=== PATIENT | male | born 1935 | race Caucasian/White ===

== ENCOUNTER → 2017-01-07 | Outpatient (CLI) | payer OTHER ==
--- NOTE | ~2017-01-07 | EXE ---
[facility] [employer] [place] [address] STRESS ECHOCARDIOGRAM Name: TERESA LOZOYA CHIKA Room #: REG MICHELLE ViDanielTian#: [id number] Admission: 01/07/17 Attend Phys: Sunny Dial, Discharge: Date of : 35 Date of Service: 01/07/17 1749 Report #: [id number] THIS REPORT FOR: //name// APPROVED REPORT Exam: Stress Echocardiogram Indication: HISTORY OF CABG Patient Location: Out-Patient Stress Nurse: Hanh Sweeney RN Status: routine HR: 84 bpm Medical History Medical History: CABG, MV repair, HTN, HLP Allergies: No known drug allergies Procedure The patient underwent an Exercise Stress Test using a Modified Gary Protocol. Blood pressure, heart rate, and EKG were monitored. An Echocardiogram was performed by upholstery technician in four stages in quad fashion. At peak stress, four selected images were obtained and placed side by side with resting images for comparison. Stress Test Details Stress Test: Exercise stress testing was performed using a modified Gary protocol. HR Resting HR: 84 bpm Max Heart Rate (APMHR): 139 bpm Max HR Achieved: 131 bpm Target HR (85% APMHR): 118 bpm % of APMHR: 94 Recovery HR: 92 bpm BP Resting BP: 132/69 mmHg Max BP: 170/68 mmHg Recovery BP: 140/60 mmHg ECG Arrhythmia: Ectopy noted post exercise Clinical Reason for Termination: moderate fatigue. Exercise duration: 4 min 42 sec Exercise capacity: 5.80 METs [facility] [address] [place] [address] STRESS ECHOCARDIOGRAM Name: TERESA LOZOYA CHIKA Room #: REG FabiánTian#: [id number] Admission: 01/07/17 Attend Phys: Sunny Dial, Discharge: Date of : 35 Date of Service: 01/07/171748 Report #: [id number] Unable to reach 100% of predicted heart for exam. All meds had been taken this morning. Patient became too fatigued to continue with treadmill. Had to "hold" stage 2 at a slower pace. Pre-Stress Echo The resting Echocardiogram showed normal left ventricular contractility with an estimated Ejection Fraction of about 55-60%. Mitral valve repair with trace to mild regurgitation. Moderate TR. PAP of 36mmHg plus the right atrial pressure. Post-Stress Echo The stress Echocardiogram showed normal left ventricular contractility with an estimated Ejection Fraction of about 65%. Conclusion Clinical Response: Non-ischemic Exercise Capacity: Average Stress ECG Response: Non-ischemic Stress Echo Images: Non-ischemic Other Information Study Quality: Adequate Technically limited study due to non-hearing patient. <ELECTRONICALLY SIGNED> By: Sunny Dial MD, [facility] 01/07/171748 48 1749 Sunny Dial MD, FACC /INF
== END ==
LOC: CV 07:20
DX: Z95.1 Presence of aortocoronary bypass graft (principal)

== ENCOUNTER → 2019-03-10 | Outpatient (CLI) | payer OTHER ==
--- NOTE | 2019-03-10 11:19 | 2DMMODE ---
[facility] [place] [address] 2 D/M-MODE ECHOCARDIOGRAM Name: TERESA LOZOYA Room #: REG [facility] [id number] ������������� Admission: 03/10/19 ������������� Attend Phys: Sunny Dial, Discharge: ��� ������������� ��� Date of : 35 �������������������� �� Report #: [id number] �������� ��������������������������������������������[id number] THIS REPORT FOR: //name// APPROVED REPORT Study performed: 03/10/2019 09:33:09 EXAM: Comprehensive 2D, Doppler, and color-flow Echocardiogram Patient Location: Out-Patient Room #: Echo lab 2 Status: routine BSA: 1.87 HR: 94 bpm BP: 126/70 mmHg Rhythm: NSR Other Information Study Quality: Good Indications CABG, MVR 2D Dimensions RVDd: 42.04 mm IVSd: 10.87 (7-11mm) LVOT Diam: 18.67 (18-24mm) LVDd: 36.41 mm PWd: 11.15 (7-11mm) Ascending Ao: 32.10 (22-36mm) LVDs: 23.64 (25-40mm) Aortic Root: 28.12 mm IVC: 16.00 mm Volumes Left Atrial Volume (Systole) Single Plane 4CH: 61.26 mL Single Plane 2CH: 61.29 mL LA ESV Index: 35.00 mL/m2 Aortic Valve AoV Peak Saji.: 1.17 m/s AO Peak Gr.: 5.52 mmHg LVOT Max P.31 mmHg LVOT Max V: 0.76 m/s ALEJA Vmax: 1.77 cm2 Mitral Valve MV Peak Gr.: 23.06 mmHg MV Mean Gr.: 11.11 mmHg E/A Ratio: 0.9 MV Decel. Time: 261.45 ms [facility] [address] [email or web address] [address] 2 D/M-MODE ECHOCARDIOGRAM Name: TERESA LOZOYA Room #: [facility] MICHELLE uKrtz#: [id number] ������������� Admission: 03/10/19 ������������� Attend Phys: Sunny Dial, Discharge: ��� ������������� ��� Date of : 35 �������������������� �� Report #: [id number] �������� ��������������������������������������������[id number] MV E Max Saji.: 1.68 m/s MV A Saji.: 1.94 m/s MV Max Saji.: 2.40 m/s MV Mean Saji.: 1.58 m/s MV VTI: 553.60 mm MV PHT: 75.82 ms MVA (PHT): 2.90 cm2 IVRT: 76.12 ms Pulmonary Valve PV Peak Saji.: 1.11 m/s PV Peak Gr.: 4.97 mmHg Tricuspid Valve TR Peak Saji.: 2.91 m/s TR Peak Gr.: 33.93 mmHg PA Pressure: 44.00 mmHg Left Ventricle The left ventricle is normal size. There is normal LV segmental wall motion. There is normal left ventricular wall thickness. The left ventricular systolic function is normal. The left ventricular ejection fraction is within the normal range. LVEF is 55-60%. Grade I - abnormal relaxation pattern. Right Ventricle Right ventricle is at the upper limits of normal. The right ventricular systolic function is normal. Atria Left atrium is dilated. Right atrium is dilated. Aortic Valve The aortic valve is normal in structure. Aortic valve is calcified. No aortic regurgitation is present. There is no aortic valvular stenosis. Mitral Valve Prosthetic mitral valve appears normal. Mild mitral regurgitation. No evidence of mitral valve stenosis. Tricuspid Valve The tricuspid valve is normal in structure. There is mild to moderate tricuspid regurgitation. Estimated PAP 44 mmHg. There is moderate pulmonary hypertension. Pulmonic Valve [address] [address] 2 D/M-MODE ECHOCARDIOGRAM Name: TERESA LOZOYA CHIKA Room #: REG MICHELLE Kurtz#: [id number] ������������� Admission: 03/10/19 ������������� Attend Phys: Sunny Dial, Discharge: ��� ������������� ��� Date of : 35 �������������������� �� Report #: [id number] �������� ��������������������������������������������[id number] The pulmonary valve is normal in structure. There is no pulmonic valvular regurgitation. Great Vessels The aortic root is normal in size. IVC is normal in size and collapses >50% with inspiration. Pericardium There is no pericardial effusion. <Conclusion> The left ventricle is normal size. LVEF is 55-60%. Grade I - abnormal relaxation pattern. Right ventricle is at the upper limits of normal. Left atrium is dilated. Left atrium is dilated. Right atrium is dilated. The aortic valve is normal in structure. Aortic valve is calcified. There is no aortic valvular stenosis. Mild mitral regurgitation. There is mild to moderate tricuspid regurgitation. Estimated PAP 44 mmHg. There is moderate pulmonary hypertension. The aortic root is normal in size. There is no pericardial effusion. ��������������������������������������������� <ELECTRONICALLY SIGNED> ���������������������������������������� By: Sunny Dial MD, FACC ��������������������������������������������� 03/10/19 1119 1119 1119 Sunny Dial MD, FACC /INF
== END ==
LOC: CV 09:19
DX: I08.3 Combined rheumatic disorders of mitral, aortic and tricuspid valves (principal); Z95.5 Presence of coronary angioplasty implant and graft

== ENCOUNTER → 2019-11-30 | Outpatient (CLI) | payer OTHER | LOC: SJCVC 13:21 | PROVIDERS: ATTEND Internal Medicine Cardiovascular Disease | DX: R94.31 Abnormal electrocardiogram [ECG] [EKG] (principal); I44.7 Left bundle-branch block, unspecified; I25.810 Atherosclerosis of coronary artery bypass graft(s) without angina pectoris; H91.93 Unspecified hearing loss, bilateral; I10 Essential (primary) hypertension; E78.00 Pure hypercholesterolemia, unspecified; I34.2 Nonrheumatic mitral (valve) stenosis; I36.1 Nonrheumatic tricuspid (valve) insufficiency; Z98.890 Other specified postprocedural states ==

== ENCOUNTER → 2020-09-30 | Outpatient (CLI) | payer OTHER | LOC: SJCVC 11:12 | PROVIDERS: ATTEND Internal Medicine Cardiovascular Disease | DX: R94.31 Abnormal electrocardiogram [ECG] [EKG] (principal); I49.3 Ventricular premature depolarization; I25.10 Atherosclerotic heart disease of native coronary artery without angina pectoris; I10 Essential (primary) hypertension; E78.00 Pure hypercholesterolemia, unspecified; R06.00 Dyspnea, unspecified; K21.9 Gastro-esophageal reflux disease without esophagitis; Z98.890 Other specified postprocedural states; Z79.82 Long term (current) use of aspirin; Z79.84 Long term (current) use of oral hypoglycemic drugs; Z79.899 Other long term (current) drug therapy ==

== ENCOUNTER → 2020-11-16 | Outpatient (CLI) | payer OTHER | LOC: SJCVCIMAG 08:18 | PROVIDERS: ATTEND Internal Medicine Cardiovascular Disease | DX: I08.3 Combined rheumatic disorders of mitral, aortic and tricuspid valves (principal); I11.9 Hypertensive heart disease without heart failure; I25.10 Atherosclerotic heart disease of native coronary artery without angina pectoris; E78.00 Pure hypercholesterolemia, unspecified; I44.0 Atrioventricular block, first degree; I49.3 Ventricular premature depolarization; I44.7 Left bundle-branch block, unspecified; Z98.890 Other specified postprocedural states; Z79.82 Long term (current) use of aspirin; Z79.84 Long term (current) use of oral hypoglycemic drugs; Z79.899 Other long term (current) drug therapy ==